=== PATIENT | female | born 1975 | race Caucasian/White ===

== ENCOUNTER 2019-07-11 10:12 | Outpatient (CLI) | payer MEDICAID, SELFPAY ==
--- NOTE | 2019-07-11 10:22 | CT_ITS ---
WS: [id number] CT LUMBAR SPINE TECHNIQUE: Noncontrast CT of the lumbar spine with coronal and sagittal reformatted images. CLINICAL INFORMATION: BACK PAIN COMPARISON: MRI February 09, 2014 DLP: 2426.[address] scans at [facility] use at least one of these dose optimization techniques: automat ed exposure control; mA and/or kV adjustment per patient size (includes targeted exams where dose is matched to clinical indication); or iterative reconstruction. FINDINGS: Normal lumbar alignment. No acute compression. No high-grade central canal stenosis. L1-L2: Normal. L2-L3: No significant disc bulging. Mild facet arthropathy. Spinal canal and foramen are patent. L3-L4: No significant disc bulging. Mild facet arthropathy. Spinal canal and foramen are patent. L4-L5: Mild annular bulging. Tiny shallow central protrusion. Mild facet arthropathy. Spinal canal an d foramen are patent. L5-S1: Mild annular bulging. Mild facet arthropathy. Spinal canal and foramen are patent. Visualized pelvic bony structures: Normal. Paravertebral soft tissues: Normal. CT/CT lumbar spine wo con* [id number] IMPRESSION: 1. Normal lumbar alignment. No acute compression. 2. No significant spinal canal or foraminal narrowing. 3. Mild facet arthropathy L3-L4 and L4-L5. 4. Minimal annular bulging L3-L4 and L4-L5. 5. Tiny shallow central protrusion L4-5 without significant spinal canal narro wing.
--- NOTE | 2019-07-11 10:23 | XR_ITS ---
WS: [id number] Lumbar spine with flexion, extension, and neutral lateral, 07/11/2019 Clinical Data: BACK PAIN Comparison: Lumbar spine x-ray, 02/09/2014 Findings: No compression fractures or subluxation is seen. No disc space narrowing is seen. No limitation of motion or subluxation is seen. There are clips in the right upper quadrant from a cholecystectomy. XR/XR lumbar spine f/e only [id number] Impression: Negative lateral lumbar spine.
== END 2019-07-11 10:13 | disposition home or self-care (01) ==
PROVIDERS: Family Provider Nurse Practitioner Family; PCP Nurse Practitioner Family; Visit Provider Anesthesiology
DX: M51.26 Other intervertebral disc displacement, lumbar region (principal)
CPT/HCPCS: 72120; 72131

== ENCOUNTER → 2019-09-13 14:49 | Outpatient (BNVA) | payer MEDICAID, SELFPAY | PROVIDERS: Family Provider Nurse Practitioner Family; PCP Internal Medicine; Visit Provider Nurse Practitioner | DX: M54.2 Cervicalgia (principal); M54.5 Low back pain; Z79.891 Long term (current) use of opiate analgesic | CPT/HCPCS: 99214 ==

== ENCOUNTER → 2020-03-14 14:08 | Outpatient (BNVA) | payer MEDICAID, SELFPAY | PROVIDERS: Family Provider Nurse Practitioner Family; PCP Internal Medicine; Visit Provider Internal Medicine | DX: R76.8 Other specified abnormal immunological findings in serum (principal); Z79.899 Other long term (current) drug therapy; Z11.59 Encounter for screening for other viral diseases; Z11.1 Encounter for screening for respiratory tuberculosis; Z88.9 Allergy status to unspecified drugs, medicaments and biological substances | CPT/HCPCS: 36415; 86480; 86704; 86803; 87340; 99203 ==

== ENCOUNTER → 2020-04-10 09:45 | Outpatient (BNVA) | payer MEDICAID, SELFPAY | PROVIDERS: Family Provider Nurse Practitioner Family; PCP Internal Medicine; Visit Provider Internal Medicine | DX: R76.8 Other specified abnormal immunological findings in serum (principal); Z88.8 Allergy status to other drugs, medicaments and biological substances; Z79.899 Other long term (current) drug therapy; G35 Multiple sclerosis | CPT/HCPCS: 99214 ==

== ENCOUNTER → 2020-09-05 09:43 | Outpatient (BNVA) | payer MEDICAID, SELFPAY | PROVIDERS: Family Provider Nurse Practitioner Family; PCP Internal Medicine; Visit Provider Internal Medicine | DX: R76.8 Other specified abnormal immunological findings in serum (principal); M25.50 Pain in unspecified joint; R21 Rash and other nonspecific skin eruption; Z79.899 Other long term (current) drug therapy; Z87.891 Personal history of nicotine dependence | CPT/HCPCS: 99213; 99214 ==

== ENCOUNTER 2020-09-05 10:40 | Outpatient (CLI) | payer MEDICAID, SELFPAY ==
[2020-09-05 11:17] LABS: Add Urine Microscopic? NO
[2020-09-05 11:22] LABS: Basophils # 0.1 10^3/uL (0.0-0.1); Basophils % 1.2 %; Eosinophils # 0.2 10^3/uL (0.0-0.8); Eosinophils % 3.1 %; Hematocrit 37.7 % (37.0-47.0); Hemoglobin 12.6 g/dL (11.5-15.3); Lymphocytes # 2.9 10^3/uL (0.8-4.8); Lymphocytes % 49.1 %; Mean Corpuscular HGB Conc 33.4 g/dL (30.0-36.0); Mean Corpuscular Hemoglobin 29.4 pg (28.0-34.0); Mean Corpuscular Volume 87.9 fL (81-99); Mean Platelet Volume 11.7 fL (7.4-10.4); Monocytes # 0.5 10^3/uL (0.2-0.9); Neutrophils # 2.25 10^3/uL (1.8-7.7); Neutrophils % 38.4 %; Nucleated Red Blood Cells # 0.1 /100WBC; Nucleated Red Blood Cells % 1.7 %; Platelet Count 211 10^3/cmm (130-400); Red Blood Count 4.29 10^6/uL (4.1-5.3); Red Cell Distribution Width 14.2 % (12.1-15.1); White Blood Count 5.9 10^3/uL (4.0-10.0)
[2020-09-05 11:24] LABS: Bilirubin Urine Neg (Negative); Blood Urine Neg (Negative); Glucose Urine UA Norm (Normal); Ketones Urine Negative (Negative); Leukocyte Esterase Urine Negative (Negative); Nitrate Urine Negative (Negative); Protein Urine Neg (Negative); Specific Gravity, Urine 1.015 (1.005-1.030); Urine Appearance Clear (CLEAR); Urine Color Yellow (Yellow); Urobilinogen Urine Norm (Negative); pH Urine 6 (5-7)
[2020-09-05 12:02] LABS: Alanine Aminotransferase 22 U/L (0-33); Albumin Level 4.2 g/dL (3.5-5.2); Alkaline Phosphatase 42 IU/L (35-105); Anion Gap 12.9 (5-19); Aspartate Amino Transferase 23 U/L (0-32); Blood Urea Nitrogen 6 mg/dL (6-20); C Reactive Protein 2.6 mg/L (0.0-4.9); Calcium 9.1 mg/dL (8.5-10.5); Carbon Dioxide 26 mmol/L (22-29); Chloride 104 mmol/L (98-107); Globulin 2.9 g/dL (1.3-4.6); Glomerular Filtration Rate 76.9 mL/min (90-130); Glucose 87 mg/dL (65-115); Osmolality Calculated 285 mOsm/kg (285-295); Potassium 3.9 mmol/L (3.5-5.1); Sodium 139 mmol/L (136-145); Total Bilirubin 0.6 mg/dL (0.15-1.2); Total Protein 7.1 g/dL (6.6-8.7)
[2020-09-05 12:03] LABS: Erythrocyte Sedimentation Rate 15 mm/hr (0-15)
== END 2020-09-05 10:41 | disposition home or self-care (01) ==
PROVIDERS: PCP Internal Medicine; Visit Provider Internal Medicine
DX: R76.8 Other specified abnormal immunological findings in serum (principal)
CPT/HCPCS: 36415; 80053; 81003; 85025; 85651; 86140

== ENCOUNTER 2021-01-06 12:45 | Outpatient (CLI) | payer MEDICAID, SELFPAY ==
[2021-01-06 13:27] LABS: Alanine Aminotransferase 11 U/L (0-33); Alkaline Phosphatase 43 IU/L (35-105); Anion Gap 14.3 (5-19); Aspartate Amino Transferase 20 U/L (0-32); Blood Urea Nitrogen 7 mg/dL (6-20); C Reactive Protein 4.8 mg/L (0.0-4.9); Calcium 8.9 mg/dL (8.5-10.5); Carbon Dioxide 26 mmol/L (22-29); Chloride 104 mmol/L (98-107); Globulin 2.5 g/dL (1.3-4.6); Glomerular Filtration Rate 76.9 mL/min (90-130); Glucose 90 mg/dL (65-115); Osmolality Calculated 288 mOsm/kg (285-295); Potassium 4.3 mmol/L (3.5-5.1); Sodium 140 mmol/L (136-145); Total Bilirubin 0.5 mg/dL (0.15-1.2); Total Protein 6.5 g/dL (6.6-8.7)
[2021-01-06 13:28] LABS: Basophils # 0.1 10^3/uL (0.0-0.1); Basophils % 0.8 %; Eosinophils # 0.2 10^3/uL (0.0-0.8); Eosinophils % 2.5 %; Hematocrit 39.6 % (37.0-47.0); Hemoglobin 13.3 g/dL (11.5-15.3); Lymphocytes # 2.5 10^3/uL (0.8-4.8); Lymphocytes % 41.1 %; Mean Corpuscular HGB Conc 33.6 g/dL (30.0-36.0); Mean Corpuscular Hemoglobin 29.6 pg (28.0-34.0); Mean Corpuscular Volume 88.2 fL (81-99); Mean Platelet Volume 11.9 fL (7.4-10.4); Monocytes # 0.4 10^3/uL (0.2-0.9); Monocytes % 6.8 %; Neutrophils % 48.5 %; Nucleated Red Blood Cells # 0.1 /100WBC; Nucleated Red Blood Cells % 1.5 %; Platelet Count 193 10^3/cmm (130-400); Red Blood Count 4.49 10^6/uL (4.1-5.3); Red Cell Distribution Width 13.2 % (12.1-15.1)
[2021-01-06 14:22] LABS: Erythrocyte Sedimentation Rate 13 mm/hr (0-15)
== END 2021-01-06 12:46 | disposition home or self-care (01) ==
PROVIDERS: PCP Internal Medicine; Visit Provider Internal Medicine
DX: R76.8 Other specified abnormal immunological findings in serum (principal); Z79.891 Long term (current) use of opiate analgesic; Z79.899 Other long term (current) drug therapy
CPT/HCPCS: 36415; 80053; 85025; 85651; 86140

== ENCOUNTER → 2021-01-08 10:48 | Outpatient (BNVA) | payer MEDICAID, SELFPAY | PROVIDERS: PCP Internal Medicine; Visit Provider Internal Medicine | DX: R76.8 Other specified abnormal immunological findings in serum (principal); R21 Rash and other nonspecific skin eruption; Z79.891 Long term (current) use of opiate analgesic; Z79.899 Other long term (current) drug therapy; Z87.891 Personal history of nicotine dependence | CPT/HCPCS: 99214 ==

== ENCOUNTER 2021-04-07 08:50 | Outpatient (CLI) | payer MEDICAID, SELFPAY ==
--- NOTE | 2021-04-07 08:57 | XR_ITS ---
WS: [id number] Bone mineral density performed on a TM, 04/07/2021. Clinical data: check bone density change COMPARISON STUDY: None. Findings: The first 4 lumbar vertebral bodies demonstrated the bone mineral density of 1.040 g/cm2 for a young adult T score of -1.2. Measurement of the left hip reveals a bone mineral density of 0.777 g/cm2 with a young adult T score of -1.8. Measurement of the right hip reveals the bone mineral density of 0.814 g/cm2 for young adult T score of -1.5. XR/XR DEXA axial skeleton* [id number] Impression: Bone mineral density of the lumbar spine and both hips shows osteopenia.
== END 2021-04-07 08:51 | disposition home or self-care (01) ==
PROVIDERS: PCP Internal Medicine; Visit Provider Internal Medicine
DX: M81.0 Age-related osteoporosis without current pathological fracture (principal); R76.8 Other specified abnormal immunological findings in serum; M85.89 Other specified disorders of bone density and structure, multiple sites
CPT/HCPCS: 77080

== ENCOUNTER 2021-05-15 11:17 | Outpatient (CLI) | payer MEDICAID, SELFPAY ==
[2021-05-15 12:26] LABS: Calcium 9.2 mg/dL (8.5-10.5)
[2021-05-15 12:33] LABS: Parathyroid Hormone 34.8 pg/mL (15-65)
[2021-05-15 12:46] LABS: 25 Hydroxy Vitamin D 50 ng/mL (30-100); Alanine Aminotransferase 15 U/L (0-33); Albumin Level 4.4 g/dL (3.5-5.2); Alkaline Phosphatase 40 IU/L (35-105); Anion Gap 14.9 (5-19); Aspartate Amino Transferase 21 U/L (0-32); Blood Urea Nitrogen 9 mg/dL (6-20); Calcium 8.9 mg/dL (8.5-10.5); Carbon Dioxide 25 mmol/L (22-29); Chloride 105 mmol/L (98-107); Globulin 2.5 g/dL (1.3-4.6); Glomerular Filtration Rate 76.9 mL/min (90-130); Glucose 77 mg/dL (65-115); Osmolality Calculated 289 mOsm/kg (285-295); Potassium 3.9 mmol/L (3.5-5.1); Sodium 141 mmol/L (136-145); Thyroid Stimulating Hormone 1.54 uIU/mL (0.27-4.20); Total Bilirubin 0.4 mg/dL (0.15-1.2); Total Protein 6.9 g/dL (6.6-8.7)
[2021-05-15 13:14] LABS: Free T4 Free Thyroxine 1.22 ng/dL (0.82-1.77)
== END 2021-05-15 11:18 | disposition home or self-care (01) ==
LOC: LAB 11:22
PROVIDERS: PCP Internal Medicine; Visit Provider Internal Medicine
DX: M81.0 Age-related osteoporosis without current pathological fracture (principal)
CPT/HCPCS: 36415; 80053; 82306; 82310; 83970; 84439; 84443

== ENCOUNTER 2021-05-15 11:23 | Outpatient (CLI) | payer MEDICAID, SELFPAY ==
--- NOTE | 2021-05-15 11:28 | XR_ITS ---
WS: [id number] Right hand, AP and lateral views, 05/15/2021 Clinical Data: R76.8 - Other specified abnormal immunological findings i... Comparison: Right hand, 02/26/2020. Findings: No fractures or dislocations are seen. The soft tissues are unremarkable. The joint space s are normal No periarticular demineralization or calcifications are seen. XR/XR hand RT 2V [id number] Impression: Negative right hand.
--- NOTE | 2021-05-15 11:28 | XR_ITS ---
WS: [id number] Left hand, 2 views, 05/15/2021 Clinical Data: R76.8 - Other specified abnormal immunological findings i... Comparison: Left hand, 02/26/2020 Findings: No fractures or dislocations are seen. The soft tissues are unremarkable. The joint spaces are normal No periarticular demineralization or calcifications are seen. XR/XR hand LT 2V [id number] Impression: Negative left hand.
== END 2021-05-15 11:24 | disposition home or self-care (01) ==
LOC: RAD 11:25
PROVIDERS: PCP Internal Medicine; Visit Provider Internal Medicine
DX: R76.8 Other specified abnormal immunological findings in serum (principal)
CPT/HCPCS: 73120

== ENCOUNTER → 2021-05-22 10:31 | Outpatient (BNVA) | payer MEDICAID, SELFPAY | PROVIDERS: PCP Internal Medicine; Visit Provider Internal Medicine | DX: M81.0 Age-related osteoporosis without current pathological fracture (principal); T14.8XXA Other injury of unspecified body region, initial encounter; M06.9 Rheumatoid arthritis, unspecified; G35 Multiple sclerosis; X58.XXXA Exposure to other specified factors, initial encounter | CPT/HCPCS: 99214 ==

== ENCOUNTER → 2021-06-19 08:30 | Outpatient (BNVA) | payer MEDICAID, SELFPAY | PROVIDERS: PCP Internal Medicine; Referring Provider Nurse Practitioner; Visit Provider Orthopaedic Surgery | DX: M05.9 Rheumatoid arthritis with rheumatoid factor, unspecified (principal); G35 Multiple sclerosis; M81.0 Age-related osteoporosis without current pathological fracture; M54.2 Cervicalgia | CPT/HCPCS: 72050; 99214 ==

== ENCOUNTER 2021-07-30 12:41 | Outpatient (CLI) | payer MEDICAID, SELFPAY ==
--- NOTE | 2021-07-30 12:48 | MR_ITS ---
WS: [id number] MRI CERVICAL SPINE NONCONTRAST TECHNIQUE: Sagittal T1, T2 and STIR imaging. Axial T2, gradient, and fiesta imaging. CLINICAL INFORMATION: M54.2 - Cervicalgia COMPARISON: MRI 5 , [address] CT FINDINGS: Straightening of the normal cervical lordosis. Anterior interbody cervical fusion C4-C6. Cord signal is normal. No high-grade central canal narrowing. Postoperative changes are new since the MRI in 2015. Hardware appears stable since the prior CT in . Susceptibility artifact from hardware degrades some images. C2-C3: Normal. C3-C4: No significant disc bulging. Mild facet arthropathy. Spinal canal and foramen are patent. C4-C5: Prior postoperative changes anterior interbody cervical fusion. Susceptibility artifact degrad es some images at this level. Mild bilateral foraminal narrowing. Mild facet arthropathy. Spinal angela l is patent. C5-C6: Postoperative changes ACDF. Moderate left bony foraminal narrowing with encroachment on the ex iting left C6 nerve root. Mild right bony foraminal narrowing. Spinal canal is patent. Moderate facet arthropathy. C6-C7: Postoperative changes ACDF. Mild left and no significant right foraminal narrowing. Spinal can al is patent. Mild facet arthropathy. C7-T1: Normal. Mucosal thickening partially visualized in the sphenoid sinus. MR/MR cervical spin wo con* [id number] IMPRESSION: 1. Straightening of the normal cervical lordosis with prior ACDF C4-C6. 2. No high-grade central canal stenosis. Cord signal is normal. 3. Moderate left C5-C6 bony foraminal narrowing with encroachment on the exiti ng left C6 nerve root. Recommend correlation for left C6 nerve root symptoms. 4. Mild to moderate facet arthropathy worse at C4-C5 and C5-C6.
== END 2021-07-30 12:42 | disposition home or self-care (01) ==
LOC: RAD 12:44
PROVIDERS: PCP Internal Medicine; Visit Provider Orthopaedic Surgery
DX: Z98.1 Arthrodesis status (principal); M47.812 Spondylosis without myelopathy or radiculopathy, cervical region
CPT/HCPCS: 72141

== ENCOUNTER → 2021-08-21 09:58 | Outpatient (BNVA) | payer MEDICAID, SELFPAY | PROVIDERS: PCP Internal Medicine; Referring Provider Orthopaedic Surgery; Visit Provider Anesthesiology Pain Medicine | DX: G89.29 Other chronic pain (principal); M47.22 Other spondylosis with radiculopathy, cervical region; M47.812 Spondylosis without myelopathy or radiculopathy, cervical region; M79.601 Pain in right arm; M79.602 Pain in left arm | CPT/HCPCS: 99205 ==

== ENCOUNTER → 2021-09-08 12:52 | Outpatient (BNVA) | payer MEDICAID, SELFPAY | PROVIDERS: PCP Internal Medicine; Visit Provider Anesthesiology Pain Medicine | DX: M54.12 Radiculopathy, cervical region (principal) | CPT/HCPCS: 62321; J1100; J1200 ==

== ENCOUNTER 2021-09-23 11:46 | Outpatient (CLI) | payer MEDICAID, SELFPAY | END 2021-09-23 11:47 | disposition home or self-care (01) | LOC: SPT 11:47 | PROVIDERS: PCP Internal Medicine; Visit Provider Orthopaedic Surgery | DX: Z46.89 Encounter for fitting and adjustment of other specified devices (principal); M54.2 Cervicalgia | CPT/HCPCS: 97760; L0174 ==

== ENCOUNTER → 2021-09-30 13:21 | Outpatient (BNVA) | payer MEDICAID, SELFPAY | PROVIDERS: PCP Internal Medicine; Visit Provider Orthopaedic Surgery | DX: Z20.822 Contact with and (suspected) exposure to COVID-19 (principal); M47.22 Other spondylosis with radiculopathy, cervical region; G35 Multiple sclerosis | CPT/HCPCS: 87635 ==

== ENCOUNTER 2021-10-06 08:09 | Day surgery (SDC) | payer MEDICAID, SELFPAY ==
[2021-10-02 13:48] VITALS: BMI 29.9
--- NOTE | 2021-10-02 15:10 | P.ANESASSM_ITS ---
Pre-Anesthetic Assessment Height/Weight: Height 1.53 m Weight 70.307 kg Operation Date: 10/06/21 14:00 Proposed Procedures p Cervical Foraminotomy C5/6, C6/7 79605/09516(Left) - Cj Skinner DO Familial anesthetic complications: None Was Beta Solange taken within 24 hours: N/A Was Clonidine taken within 24 hours: N/A Social No alcohol and No tobacco Exam alert, oriented x 3, clear to auscultation bilaterally and regular rate & rhythm Airway Submandibular: within normal limits Cervical ROM: Other (Some limitation with pain) Mallampati: Class II Dentition: false Metabolic Hyperlipidemia, Morbid Obesity and Thyroid Disease [facility] [place] Osteoarthritis/DJD LUE pain Neuropsych MS Anesthetic Plan ASA status: 3 Anesthesia: General Other: Significant PONV --TIVA? Medications/Allergies Home Medications Medication Instructions Recorded Confirmed Last Taken Type albuterol sulfate 90 mcg/actuation 2 puff INHALATION Q6H PRN 09/13/19 10/02/21 Unknown History aerosol inhaler (ProAir HFA) lidocaine 4 % topical cream 1 applic TOPICAL .every 6 hours gm 09/13/19 10/02/21 Unknown History loratadine 10 mg tablet 10 mg PO DAILY 09/13/19 10/02/21 Unknown History melatonin 5 mg tablet 5 mg PO DAILY PRN 09/13/19 10/02/21 Unknown History multivit with [id number] tab PO 09/13/19 09/23/21 Unknown History fumarate-folic acid 27 mg-1 mg tablet oxybutynin chloride 5 mg tablet 5 mg PO BID 09/13/19 10/02/21 Unknown History pregabalin 150 mg capsule (Lyrica) 150 mg PO TID #90 cap 09/13/19 10/02/21 Unknown Rx simvastatin 20 mg tablet 20 mg PO DAILY 09/13/19 10/02/21 Unknown History tizanidine 4 mg tablet (Zanaflex) 4 mg PO Q8H PRN 09/13/19 10/02/21 Unknown History vitamin d See Rx Instructions DIRECTED 01/29/20 10/02/21 Unknown Rx .weekly #30 cap levothyroxine 50 mcg capsule 50 mcg PO DAILY 03/14/20 10/02/21 Unknown History diclofenac sodium 1 % topical gel 2 gm TOPICAL QID #100 gm 04/10/20 10/02/21 Unknown Rx (Voltaren) meloxicam 15 mg tablet 15 mg PO DAILY #30 tab 08/29/20 10/02/21 Unknown Rx natalizumab 300 mg/15 mL 300 mg IV Q28D 01/08/21 10/02/21 Unknown History intravenous solution (Tysabri) alendronate 70 mg tablet (Fosamax) 70 mg PO .weekly 90 Days #12 tab 09/16/21 10/02/21 Unknown Rx anvik j collar #1 ea 09/23/21 09/23/21 Unknown Rx Allergies Allergy/AdvReac Type Severity Reaction Status Date / Time carisoprodol [From Soma] Allergy ALGY-Rash Verified 09/23/21 10:51 prednisolone Allergy ALGY-Anaphy Verified 09/23/21 10:51 laxis prednisone Allergy ALGY-Difficulty Verified 09/23/21 10:51 Breathing zolmitriptan [From Zomig] Allergy RASH Verified 09/23/21 10:51 adhesive AdvReac UNKNOWN Verified 09/23/21 10:51 carbamazepine [From Tegretol] AdvReac VOMITING Verified 09/23/21 10:51 zolpidem [From Ambien] AdvReac SLEEP Verified 09/23/21 10:51 WALKING [facility] Anesthesia Medical History (Updated 09/23/21 @ 11:11 by Cj Skinner DO) Drug allergy Encounter for long-term opiate analgesic use Low back pain of over 3 months duration Neck pain Opioid contract exists Rheumatoid factor positive Surgical History Hx of cholecystectomy Hx of hysterectomy, total Hx of neck surgery 03/26/16 w/Dr Schmidt C4-C5 C5-C6 anterior cervical discectomy/ fusion/ fixation Hx of repair of rotator cuff Left-2009 Family History Mother Hypertension Grandfather Cancer liver Social History Smoking and tobacco status: never smoked Alcohol intake: never History of recent travel: No Data Anesthesia Cardiac Studies: No Data to Display
[2021-10-06] VITALS (14 sets, daily range): BP systolic 117–138; BP diastolic 73–85; PULSE 61–92; RESP 10–20; TEMP 36–36.6; O2SAT 94–100
--- NOTE | 2021-10-06 | SCC_ITS ---
Procedure done: 1. C5/6 laminectomy, partail facetectomy, foraminotomy 2. C6/7 laminectomy, partail facetectomy, foraminotomy 12.2 seconds of fluoroscopic guidance, for a cumulative dose of 0.67 mGy, was provided to Dr. Skinner by the radiology department. C-arm images of the cervical spine were saved for the patient's permanent record. [facility]
--- NOTE | 2021-10-06 | XR_ITS ---
WS: [id number] INTRAOPERATIVE TECHNIQUE: 4 Spot fluoroscopic images for intraoperative purposes. FLUOROSCOPY TIME: 12.2 seconds CLINICAL INFORMATION: IN OR COMPARISON: None. FINDINGS: Endotracheal tube partially visualized. Prior postoperative changes anterior cervical fusion C4-C6 wi th interbody fusion grafts. Localization marker overlying C5 and C6 XR/XR cervical spine 3V* [id number] IMPRESSION: Images obtained for intraoperative purposes.
[2021-10-06] MEDS: sodium chloride 0.9% 1,000 ML 30 ML IV (08:32)
--- NOTE | 2021-10-06 08:43 | P.ANESUD_ITS ---
Pre-Anesthetic Update Pre-Anesthetic Assessment: Date of Surgery/Procedure: 10/06/21 Preop Shweta gnosis: Cervical radiculopathy Proposed Procedure: Operation Date: 10/06/21 09:50 Proposed Procedures p Cervical Foraminotomy C5/6, C6/7 12051/69118(Left) - Cj Skinner, DO Any changes to Pre-Anesthetic Assessment?: No Last Intake: Intake Last Liquid Date 10/05/21 Last Liquid Time 23:00 Last Solid Date 10/05/21 Last Solid Time 23:00 Labs Last 48hrs: ? 8 hrs Vitals: Temperature 98 F 10/06/21 08:25 Temperature Source Temporal Artery S can 10/06/21 08:25 Pulse Rate 73 10/06/21 08:25 Pulse Rhythm 10/06/21 08:20 Pulse Strength 3+ Normal 10/06/21 08:20 Respiratory Rate 16 10/06/21 08:25 Blood Pressure 125/85 10/06/21 08:25 Blood Pressure Dary n 98 10/06/21 08:25 Pulse Oximetry 97 10/06/21 08:25 Oxygen Delivery Me thod 10/06/21 08:25 Exam: Pre-Anes Outpt Exam: alert, oriented x 3, clear to auscultation bilaterally and regular rate & rhythm Other Pertinent Information: Other Pertinent Information: pre-op scopolamine patch Cardiac Studies: No Data to Display
[2021-10-06] MEDS: scopolamine 1.5 Patch 1 PATCH TRANSDERMA (08:48)
--- NOTE | 2021-10-06 09:20 | W.PM.OPSUD ---
Surgery/Procedure H&P Update DATE OF PROCEDURE: October 06, 2021 DATE H&P PERFORMED: 09/23/21 H&P UPDATE INFORMATION: I have reviewed H&P completed within last 30 days, I have examined patient prior to procedure and No changes to prior documentation PREOP DIAGNOSIS: Cervical radiculopathy PLANNED PROCEDURE: Operation Date: 10/06/21 09:50 Proposed Procedures p Cervical Foraminotomy C5/6, C6/7 39895/[id number](Left) - Cj Skinner DO
--- NOTE | 2021-10-06 11:23 | P.OP_ITS ---
Operative Report Date of procedure: October 06, 2021 Pre-op diagnosis: Preop Diagnosis Cervical radiculopathy Post-op diagnosis: same Procedure done: 1. C5/6 laminectomy, partail facetectomy, foraminotomy 2. C6/7 laminectomy, partail facetectomy, foraminotomy Surgeon: Cj Skinner Component Assembler Supervisor: James Serna Component Assembler Supervisor: The visitor service assistant, James Serna, PAC was needed for his expertise under the microscope. He was important and necessary throughout the procedure to complete in a safe and timely manner. He assisted with patient positioning prepping and draping tissue retraction suctioning of the operative field protection of the dural sac and tissue closure Estimated blood loss (mL): 25 Procedure: 1. C5/6 laminectomy, partail facetectomy, foraminotomy 2. C6/7 laminectomy, partail facetectomy, foraminotomy Patient is brought to the operative suite. After undergoing anesthesia they are placed in the prone position. All areas of impingement are well padded. Patient is then prepped and draped in the normal sterile fashion. A skin incision is made over the C5/6 and C6/7 level. This is confirmed under c-arm guidance. A bovie is used to clear the soft tissue off the lamina and the C5/6 facet joint. A high speed whit is then used to perform the laminectomy and take down the medial aspect of the C5/6 facet joint. A kerrison rongeure was then used to take down the remaining lamina and smooth the edge of the laminectomy up to the point where the ligamentum flavum attaches. Attention was then brought to the medial aspect of the facet joint. The remaining medial aspect of the superior and inferior aspect of the facet joint were taken down with the kerrison from the pedicle of C5 to C6. The facet joint had significant hypertrophy. Attention was then brought to the Ligamentum Flavum. The ligament was taken down from the lamina of C5 to C6 and out medially to the remaining facet joint. The ligament was thick. The dura was then exposed. The dura was in good repair. The C6 nerve was then traced with a curette out the C5/6 foramen and found to be adequately decompressed. The C7 nerve was traced with a curette around the C7 pedicle. The lateral recess was opened with a kerrison helping to further decompress the C7 nerve. A bovie is used to clear the soft tissue off the lamina and the C6/7 facet joint. A high speed whit is then used to perform the laminectomy and take down the medial aspect of the C6/7 facet joint. A kerrison rongeure was then used to take down the remaining lamina and smooth the edge of the laminectomy up to the point where the ligamentum flavum attaches. Attention was then brought to the medial aspect of the facet joint. The remaining medial aspect of the superior and inferior aspect of the facet joint were taken down with the kerrison from the pedicle of C6 to C7. The facet joint had significant hypertrophy. Attention was then brought to the Ligamentum Flavum. The ligament was taken down from the lamina of C6 to C7 and out medially to the remaining facet joint. The ligament was thick. The dura was then exposed. The dura was in good repair. The C7 nerve was then traced with a curette out the C6/7 foramen and found to be adequately decompressed. The C8 nerve was traced with a curette around the C7 pedicle. The lateral recess was opened with a kerrison helping to further decompress the C8 nerve. Wound is then irrigated copiously with saline and surgiflo is used to stop any bleeding. The wound is closed with vicryl and monocryl suture. Glue is then used to protect the wound. A sterile dressing is then placed. Patient was then placed in the supine position and transferred to the PACU in stable condition.
--- NOTE | 2021-10-06 11:42 | SUR.PHASEI ---
Addendum entered by Chris Kaur RN 10/06/21 11:56: NSR ON MONITOR Original Note: RECEIVED PATIENT FROM OR STAFF.AIRWAY PATENT GOOD VENTILATION NOTED. ROM AND SENSATION ALL 4 EXTREMITIES.
[2021-10-06] MEDS: ondansetron 2 mg/ML SDV 2 mL 4 MG IVP (11:53)
--- NOTE | 2021-10-06 11:54 | SUR.PHASEI ---
MEDICATED FOR NAUSEA.
[2021-10-06] MEDS: fentaNYL 50 mcg/mL INJ 2mL IVP (12:08)
--- NOTE | 2021-10-06 12:10 | SUR.PHASEI ---
MEDICATED FOR NECK PAIN.
[2021-10-06] MEDS: HYDROcodone-acetaminophen 5-325 mg Tablet 2 TAB PO (13:24)
--- NOTE | 2021-10-06 16:02 | ANE.PACU2 ---
Inpatient post-anesthesia follow up: Airway intact: Yes Vital signs: Temperature 96.8 F Pulse Rate 68 Respiratory Rate 15 Blood Pressure 130/83 Pulse Oximetry 94 Oxygen Delivery Me thod Room Air Oxygen Flow Rate 6 Fraction of Inspir ed Oxygen Hydration adequate: Yes Nausea and vomiting: No Pain level: 3 Mental status: Baseline
== END 2021-10-06 13:30 | disposition home or self-care (01) ==
PROVIDERS: PCP Internal Medicine; Visit Provider Orthopaedic Surgery
PROC: (CPT 22600; principal; 2021-10-06 09:50)
DX: M54.12 Radiculopathy, cervical region (principal); E78.5 Hyperlipidemia, unspecified; E66.01 Morbid (severe) obesity due to excess calories; M19.90 Unspecified osteoarthritis, unspecified site; Z79.891 Long term (current) use of opiate analgesic; Z68.30 Body mass index [BMI] 30.0-30.9, adult
CPT/HCPCS: 63047; 63048; 72040; 76000; J0690; J1100; J1200; J2405; J2704; J2710; J3010; J3490; J7030

== ENCOUNTER → 2021-10-21 08:39 | Outpatient (BNVA) | payer MEDICAID, SELFPAY | PROVIDERS: PCP Internal Medicine; Visit Provider Orthopaedic Surgery | DX: Z47.89 Encounter for other orthopedic aftercare (principal); Z98.890 Other specified postprocedural states | CPT/HCPCS: 99024 ==

== ENCOUNTER → 2021-11-03 08:37 | Outpatient (BNVA) | payer MEDICAID, SELFPAY | PROVIDERS: PCP Internal Medicine; Visit Provider Internal Medicine | DX: M81.0 Age-related osteoporosis without current pathological fracture (principal); R76.8 Other specified abnormal immunological findings in serum; T14.8XXA Other injury of unspecified body region, initial encounter; X58.XXXA Exposure to other specified factors, initial encounter; M05.9 Rheumatoid arthritis with rheumatoid factor, unspecified; G35 Multiple sclerosis | CPT/HCPCS: 99214 ==

== ENCOUNTER → 2021-11-18 10:02 | Outpatient (BNVA) | payer MEDICAID, SELFPAY | PROVIDERS: PCP Internal Medicine; Visit Provider Orthopaedic Surgery | DX: Z47.89 Encounter for other orthopedic aftercare (principal); Z98.890 Other specified postprocedural states | CPT/HCPCS: 99024 ==

== ENCOUNTER → 2021-12-30 09:43 | Outpatient (BNVA) | payer MEDICAID, SELFPAY | PROVIDERS: PCP Internal Medicine; Visit Provider Orthopaedic Surgery | DX: Z47.89 Encounter for other orthopedic aftercare (principal); M54.50 Low back pain, unspecified | CPT/HCPCS: 99024; 99213 ==

== ENCOUNTER 2022-02-04 12:51 | Outpatient (CLI) | payer MEDICAID, SELFPAY ==
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
== END 2022-02-04 12:52 | disposition home or self-care (01) ==
PROVIDERS: PCP Internal Medicine; Visit Provider Orthopaedic Surgery
DX: M51.26 Other intervertebral disc displacement, lumbar region (principal); M51.27 Other intervertebral disc displacement, lumbosacral region; M47.816 Spondylosis without myelopathy or radiculopathy, lumbar region
CPT/HCPCS: 72148

== ENCOUNTER → 2022-02-10 10:51 | Outpatient (BNVA) | payer MEDICAID, SELFPAY | PROVIDERS: PCP Internal Medicine; Visit Provider Orthopaedic Surgery | DX: M47.816 Spondylosis without myelopathy or radiculopathy, lumbar region (principal) | CPT/HCPCS: 99213; 99214 ==

== ENCOUNTER → 2022-03-02 10:58 | Outpatient (BNVA) | payer MEDICAID, SELFPAY | PROVIDERS: PCP Internal Medicine; Visit Provider Anesthesiology Pain Medicine | DX: G89.29 Other chronic pain (principal); M54.50 Low back pain, unspecified; M79.604 Pain in right leg; M79.605 Pain in left leg | CPT/HCPCS: 99214 ==

== ENCOUNTER 2022-03-05 06:00 | Outpatient (RCR) | payer MEDICAID, SELFPAY | END 2022-04-03 23:59 | disposition home or self-care (01) | LOC: GPT 06:00 | PROVIDERS: PCP Internal Medicine; Visit Provider Anesthesiology Pain Medicine | DX: M54.50 Low back pain, unspecified (principal); G89.29 Other chronic pain | CPT/HCPCS: 97110; 97140; 97161 ==

== ENCOUNTER 2022-09-24 11:01 | Outpatient (CLI) | payer MEDICAID, SELFPAY ==
--- NOTE | 2022-09-24 11:36 | FL_ITS ---
WS: [id number] EXAMINATION: FL barium swallow [id number] REASON FOR EXAM: HOARSENESS/MULTIPLE SCLEROSIS ORDER DATE: 09/24/2022 11:38 AM COMPARISON: None available. TECHNIQUE: The patient was able to swallow thick and thin barium along with effervescent granules for the esopha gram. Cine-fluoroscopy with rapid sequence imaging was obtained while the patient swallowed. The pete ent was also placed supine and in various recumbent positions during the exam. FINDINGS: There was a normal mucosal fold pattern in the upper esophagus. There is no sign of diverticula, webs or stricture. There was no delay in contrast emptying from the esophagus into the stomach. Normal es ophageal motility without sliding hiatal hernia. With provocative maneuvers no gastroesophageal reflu x was initiated. The distal esophageal mucosal pattern is unremarkable. FL/FL barium swallow [id number] IMPRESSION: Normal esophagram FLUOROSCOPY TIME: 1min [id number] # OF SPOT FILMS: 4
== END 2022-09-24 11:02 | disposition home or self-care (01) ==
LOC: RAD 11:04
PROVIDERS: PCP Internal Medicine; Visit Provider Nurse Practitioner
DX: G35 Multiple sclerosis (principal); R49.0 Dysphonia
CPT/HCPCS: 74220

== ENCOUNTER 2022-11-27 08:56 | Outpatient (CLI) | payer MEDICAID, SELFPAY ==
--- NOTE | 2022-11-27 09:08 | FL_ITS ---
WS: [id number] Modified barium swallow, 11/27/2022 Clinical Data: Oropharyngeal dysphagia Comparison: None. Fluoroscopy time: 1min [id number] # of spot films: Findings: The patient ingested the barium products. There was normal oral movement. The oral contents were prop elled normally into the hypopharynx. No aspiration or penetration could be seen. There is no signific ant pooling. The barium proceeded normally through the hypopharynx. The barium tablet flowed quickly from the oropharynx into the hypopharynx then the esophagus and finally the stomach. FL/FL barium swallow modifd [id number] Impression: Negative modified barium swallow.
== END 2022-11-27 08:57 | disposition home or self-care (01) ==
PROVIDERS: PCP Internal Medicine; Visit Provider Otolaryngology
DX: J37.0 Chronic laryngitis (principal); R13.12 Dysphagia, oropharyngeal phase
CPT/HCPCS: 74230; 92611

== ENCOUNTER 2023-01-11 16:00 | Outpatient (CLI) | payer MEDICAID, SELFPAY ==
--- NOTE | 2023-01-11 16:15 | CT_ITS ---
WS: [id number] CT NECK TECHNIQUE: Contrast-enhanced CT of the neck with coronal and sagittal reformatted images. CLINICAL INFORMATION: DYSPHAGIA, PHARYNGOESOPHAGEAL PHASE COMPARISON: None. DLP: 192.[address] scans at [facility] use at least one of these dose optimization techniques: automated e xposure control; mA and/or kV adjustment per patient size (includes targeted exams where dose is matc hed to clinical indication); or iterative reconstruction. FINDINGS: Paranasal sinuses and mastoid air cells well aerated. Small amount of fluid in the sphenoid sinus. Mild mucosal thickening ethmoid air cells. Parotid glands are normal. Normal submandibular glands. Tongue base is normal. Normal posterior nasal nasopharynx and parapharyngeal fat. No evidence of supraglottic or glottic mass. Azygos fissure in t he RIGHT lung apex. No cervical lymphadenopathy. Postoperative changes ACDF C4-C6. CT/CT neck w con* [id number] IMPRESSION: 1. No acute findings. 2. Normal salivary glands. 3. No cervical lymphadenopathy. 4. No evidence of supraglottic or glottic mass. 5. Small amount of fluid in the sphenoid sinus. Mastoid air cells well aerated . 6. Postoperative changes ACDF C4-C6.
[2023-01-11] MEDS: iohexol 350 mg/mL 500 mL Btl (per mL) IV (16:28)
== END 2023-01-11 16:01 | disposition home or self-care (01) ==
LOC: RAD 16:02
PROVIDERS: PCP Internal Medicine; Visit Provider Otolaryngology
DX: R13.14 Dysphagia, pharyngoesophageal phase (principal); Z98.1 Arthrodesis status
CPT/HCPCS: 70491; Q9967

== ENCOUNTER → 2023-09-16 11:37 | Outpatient (BNVA) | payer MEDICAID, SELFPAY | PROVIDERS: PCP Internal Medicine; Referring Provider Physician Assistant; Visit Provider Internal Medicine Pulmonary Disease | DX: R76.8 Other specified abnormal immunological findings in serum (principal); R06.02 Shortness of breath | CPT/HCPCS: 36415; 82785; 85025; 86003; 99204 ==

== ENCOUNTER 2023-09-28 09:25 | Outpatient (CLI) | payer MEDICAID, SELFPAY ==
--- NOTE | 2023-09-28 10:00 | CTR_ITS ---
PROCEDURE INFORMATION: Exam: CT Chest Without Contrast; Diagnostic Exam date and time: 09/28/2023 9:31 AM Age: 48 years old Clinical indication: Shortness of breath; Patient HX: HX of cervical cancer; Additional info: Hrct TECHNIQUE: Imaging protocol: Diagnostic computed tomography of the chest without contrast. Radiation optimization: All CT scans at this facility use at least one of these dose optimization techniques: automated exposure control; mA and/or kV adjustment per patient size (includes targeted exams where dose is matched to clinical indication); or iterative reconstruction. COMPARISON: CT neck w con* [id number] 01/11/2023 4:23 PM RADIATION DOSE METRICS: Total DLP (mGy-cm): 1177.5 FINDINGS: Lungs: Tree in bud/mildly confluent infiltrate lower lobe. Pleural spaces: Unremarkable. No pneumothorax. No pleural effusion. Heart: Unremarkable. No cardiomegaly. No pericardial effusion. Lymph nodes: Visible central lymph nodes are not enlarged. Vasculature: Azygos accessory fissure. No coronary artery calcifications. Gallbladder and bile ducts: Cholecystectomy. Bones/joints: Unremarkable. No acute fracture. Soft tissues: Unremarkable. CT/CT chest wo con [id number] IMPRESSION: Mild left lower pneumonia.
== END 2023-09-28 09:26 | disposition home or self-care (01) ==
LOC: RAD 09:26
PROVIDERS: PCP Internal Medicine; Visit Provider Internal Medicine Pulmonary Disease
DX: J84.9 Interstitial pulmonary disease, unspecified (principal); J18.9 Pneumonia, unspecified organism
CPT/HCPCS: 71250

== ENCOUNTER 2023-10-06 09:37 | Outpatient (CLI) | payer MEDICAID, SELFPAY | END 2023-10-06 09:38 | disposition home or self-care (01) | PROVIDERS: PCP Internal Medicine; Visit Provider Internal Medicine Pulmonary Disease | DX: R06.02 Shortness of breath (principal) | CPT/HCPCS: 94010; 94618; 94726; 94729 ==

== ENCOUNTER → 2023-11-16 14:34 | Outpatient (BNVA) | payer MEDICAID, SELFPAY | PROVIDERS: PCP Internal Medicine; Visit Provider Internal Medicine Pulmonary Disease | DX: R06.02 Shortness of breath (principal) | CPT/HCPCS: 99214 ==

== ENCOUNTER → 2024-04-04 12:30 | Outpatient (BNVA) | payer MEDICAID, SELFPAY | PROVIDERS: PCP Internal Medicine; Referring Provider Nurse Practitioner; Visit Provider Nurse Practitioner Family | DX: L57.0 Actinic keratosis (principal); L71.8 Other rosacea; L85.8 Other specified epidermal thickening; L82.1 Other seborrheic keratosis; D22.5 Melanocytic nevi of trunk; L57.8 Other skin changes due to chronic exposure to nonionizing radiation; Z80.8 Family history of malignant neoplasm of other organs or systems | CPT/HCPCS: 17000; 99214 ==

== ENCOUNTER 2024-07-19 08:38 | Outpatient (CLI) | payer MEDICAID, SELFPAY ==
--- NOTE | 2024-07-19 08:47 | MR_ITS ---
WS: [id number] MRI BRAIN WITH AND WITHOUT CONTRAST HISTORY: HEADACHE COMPARISON: 12/11/2015 TECHNIQUE: Multiplanar imaging performed through the brain with MultiHance 13 ml's IV. No acute infarcts are seen. Potter-white matter differentiation is well preserved. Moderate increase in the scattered T2 and FLAIR signal hyperintensities in the subcortical and periventricular white jeanie er since 2016. Numerous scattered foci are noted bilaterally. No signal abnormality in the cerebellum . No susceptibility artifacts or prior lacunar infarcts. Ventricles and extra-axial spaces are normal. Clivus and pituitary gland are normal. Visualized posterior fossa and brainstem are also normal. Postcontrast images are negative for masses or vascular malformations. Dural venous sinuses are normal. Paranasal sinuses: Well aerated with no significant disease. Mastoid air cells: Normal. Calvarium and scalp: Normal. MR/MR head wo/w con [id number] IMPRESSION: 1. No acute infarct or hemorrhage. 2. Moderate progression of scattered T2 and FLAIR signal hyperintensities in t he periventricular and subcortical white matter since 2016. 3. No areas of enhancement.
[2024-07-19] MEDS: gadobenate dimeglumine 20 mL vial IV (09:18)
== END 2024-07-19 08:39 | disposition home or self-care (01) ==
LOC: RAD 08:40
PROVIDERS: PCP Internal Medicine; Visit Provider Nurse Practitioner
DX: R51.9 Headache, unspecified (principal); R42 Dizziness and giddiness; H53.8 Other visual disturbances; W00.9XXA Unspecified fall due to ice and snow, initial encounter; R93.89 Abnormal findings on diagnostic imaging of other specified body structures
CPT/HCPCS: 70553

== ENCOUNTER 2024-07-20 15:51 | Emergency (ER) | payer MEDICAID, SELFPAY ==
[2024-07-20 15:54] VITALS: BP 151/91; PULSE 83; RESP 18; TEMP 36.6; O2SAT 97; BMI 29.7
--- NOTE | 2024-07-20 16:11 | XRR_ITS ---
PROCEDURE INFORMATION: Exam: XR Chest Exam date and time: 07/20/2024 4:49 PM Age: 49 years old Clinical indication: Dyspnea TECHNIQUE: Imaging protocol: Radiologic exam of the chest. Views: 1 view. COMPARISON: CT chest con [id number] 09/28/2023 9:31 AM FINDINGS: Lungs: Unremarkable. No consolidation. Pleural spaces: Unremarkable. No pleural effusion. No pneumothorax. Heart/Mediastinum: Unremarkable. No cardiomegaly. Bones/joints: Unremarkable. XR/XR chest 1V portable [id number] IMPRESSION: No acute findings.
--- NOTE | 2024-07-20 16:13 | ED_ITS ---
Documented by User: Edwin Hardin MD 07/20/24 18:27 HPI - SOB/Dyspnea 2 General: Chief Complaint: Shortness of Breath/Dyspnea Stated Complaint: trouble breathing Time Seen by Provider: 07/20/24 16:10 History of Present Illness: HPI Narrative: Chief complaint shortness of breath. The patient states she has a history of asthma. She has a helper/driver. She states since July of last year she has been fighting off a chronic pneumonia. She states it is in the bottom of her lung and she states that she has had a prior CT scan and she has been on antibiotics several times. She saw her helper/driver recently and they ordered another CT scan which she is supposed to have tomorrow to check for pneumonia or TB among others. She states she has never had TB or TB exposure. She has not been in correction or working at a correction or homeless correction or foreign travel. She does have MS however. She states right now she is off all her asthma medication getting ready for her CT. She denies any history of heart problems or congestive heart failure that she is aware of. No history of cardiac dysrhythmia. She states that she was talking to her daughter about an hour prior to arrival and her daughter said something that upset her greatly and she suddenly felt like she had something sitting on her chest and she could not catch her breath or to get any breath in. She states that after she got the breathing treatments by EMS all her symptoms resolved and she feels fine now. No fever. No recent illness. No runny nose cough or congestion. No hemoptysis. No leg pain or swelling. No recent mobility. No history of PE or DVT. She does not have palpitations associated with this episode. Her asked her if it could have been a panic attack. She states that certainly could have been. She states she feels fine now. She states this morning and prior to that conversation she felt fine. She did not have any radiation of pain to her back arm or jaw. She states it was just substernal pressure and felt like she could not breathe. Related Data Home Medications Medication Instructions Recorded Confirmed lidocaine 4 % topical cream 1 applic topical .every 6 hours 09/13/19 11/16/23 melatonin 5 mg tablet 5 mg PO DAILY PRN Insomnia 09/13/19 11/16/23 multivit with [id number] tab PO 09/13/19 11/16/23 fumarate-folic acid 27 mg-1 mg tablet oxybutynin chloride 5 mg tablet 5 mg PO BID 09/13/19 11/16/23 tizanidine 4 mg tablet (Zanaflex) 4 mg PO Q8H PRN musle spasms 09/13/19 11/16/23 levothyroxine 50 mcg capsule 50 mcg PO DAILY 03/14/20 11/16/23 natalizumab 300 mg/15 mL 300 mg IV Q28D 01/08/21 11/16/23 intravenous solution (Tysabri) ipratropium 20 mcg-albuterol 100 1 puff inhalation Q4H 03/02/22 11/16/23 mcg/actuation mist for inhalation (Combivent Respimat) azelastine 137 mcg (0.1 %) nasal 2 spray intranasal BID 09/16/23 11/16/23 spray budesonide 0.5 mg/2 mL suspension 0.25 mg inhalation BID 09/16/23 11/16/23 for nebulization celecoxib 200 mg capsule (Celebrex) 200 mg PO BID 09/16/23 11/16/23 cetirizine 10 mg capsule (All Day 10 mg PO DAILY 09/16/23 11/16/23 Allergy (cetirizine)) estradiol 1 mg tablet 1 mg PO DAILY 09/16/23 11/16/23 fluticasone propionate 50 2 spray intranasal DAILY 09/16/23 11/16/23 mcg/actuation nasal spray,suspension (Allergy Relief (fluticasone)) ipratropium 0.5 mg-albuterol 3 mg 3 ml inhalation Q4H PRN 09/16/23 11/16/23 (2.5 mg base)/3 mL nebulization soln linaclotide 72 mcg capsule 72 mcg PO DAILY 09/16/23 11/16/23 (Linzess) lutein 20 mg capsule 20 mg PO DAILY 09/16/23 11/16/23 meloxicam 15 mg tablet 15 mg PO DAILY PRN 09/16/23 11/16/23 metronidazole 1 % topical cream 1 applic topical DAILY 09/16/23 11/16/23 pimecrolimus 1 % topical cream 1 applic topical BID 09/16/23 11/16/23 (Elidel) rosuvastatin 20 mg tablet 20 mg PO DAILY 09/16/23 11/16/23 triamcinolone acetonide 0.5 % 1 applic topical DAILY 09/16/23 11/16/23 topical cream Previous Rx's Medication Instructions Recorded pregabalin 150 mg capsule (Lyrica) 150 mg PO TID pain #90 caps 09/13/19 vitamin d See Rx Instructions as directed 01/29/20 .weekly #30 caps diclofenac sodium 1 % topical gel 2 gm topical QID #100 grams 04/10/20 (Voltaren) [place] j collar #1 ea 09/23/21 alendronate 70 mg tablet (Fosamax) 70 mg PO .weekly 3 months #12 tabs 07/31/22 fluticasone propionate 110 1 puff inhalation BID #12 grams 09/16/23 mcg/actuation HFA aerosol inhaler umeclidinium 62.5 mcg-vilanterol 1 inh inhalation DAILY #60 ea 09/16/23 25 mcg/actuation powdr for inhalation (Anoro Ellipta) levofloxacin 500 mg tablet 500 mg PO DAILY #5 tabs 09/30/23 Allergies Allergy/AdvReac Type Severity Reaction Status Date / Time carisoprodol [From Soma] Allergy ALGY-Rash Verified 11/16/23 14:57 prednisolone Allergy ALGY-Anaphy Verified 11/16/23 14:57 laxis prednisone Allergy ALGY-Difficulty Verified 11/16/23 14:57 Breathing zolmitriptan [From Zomig] Allergy RASH Verified 11/16/23 14:57 adhesive AdvReac UNKNOWN Verified 11/16/23 14:57 carbamazepine [From Tegretol] AdvReac VOMITING Verified 11/16/23 14:57 zolpidem [From Ambien] AdvReac SLEEP Verified 11/16/23 14:57 WALKING [facility] ED 2 PFSH: Medical History (Updated 07/20/24 @ 19:17 by Andrew Lucas DO) Rheumatoid factor positive Drug allergy Encounter for long-term opiate analgesic use Low back pain of over 3 months duration Neck pain Opioid contract exists Surgical History Hx of cholecystectomy Hx of neck surgery 03/26/16 w/Dr Schmidt C4-C5 C5-C6 anterior cervical discectomy/ fusion/ fixation Hx of hysterectomy, total Hx of repair of rotator cuff Left-2009 Family History Mother Hypertension Grandfather Cancer liver Social History Smoking and tobacco/nicotine status: never used tobacco/nicotine Second hand smoke exposure: No Alcohol intake: never Substance/Drug Use: never Physical Exam 2 Narrative: EXAM NARRATIVE: Patient is alert anxious. She is mildly tachycardic on auscultation. No murmurs. Lung sounds mildly diminished with mild bilateral expiratory wheezing. No prolonged expiratory phase or retractions or accessory muscle use. No abdominal tenderness guarding or rebound. No calf tenderness or pitting edema. She has a brace on her right leg which she states is chronic and not new. Neck is supple. Pupils equal reactive to light. Oropharynx is moist. She is alert and talkative and talking in full sentences.Speech is clear.No calf tenderness. Course 2 Vital Signs: Vital signs: Vital Signs Temperature 97.8 F 07/20/24 15:54 Pulse Rate 75 07/20/24 19:32 Respiratory Rate 16 07/20/24 18:35 Blood Pressure 155/80 07/20/24 19:32 Pulse Oximetry 98 07/20/24 19:32 Oxygen Delivery Me thod Room Air 07/20/24 15:54 MDM - SOB/Dyspnea Medical Decision Making Patient presents with acute onset of substernal chest tightness and feeling like she could not breathe following a very upsetting conversation with her daughter. She states she feels fine now after receiving DuoNeb albuterol nebulized treatment and nebulized Decadron by EMS. She is currently asymptomatic although she does still have some mild bilateral expiratory wheezing. She is not in any respiratory distress. Panic attack, cardiac dysrhythmia, Takotsubo's, other cardiomyopathy, PE, SD, pericardial effusion, pleural effusion, dissection, extensive differential.Patient had resolution of symptoms with breathing treatments and inhaled steroids making other etiologies other than asthma attack or anxiety attack less likely. No migration or radiation of pain to the back to suggest dissection. I will screen D-dimer however as patient is pending CT tomorrow. She wants to hold off and do her CT tomorrow as scheduled unless her D-dimer is elevated. She wants her doctor to be able to see her images and she gets her care in another system primarily. I advised patient risk and benefit of just doing a CT now without waiting on D-dimer but she wants to do D-dimer and not do the CT if D-dimer is not significant elevated. Will obtain troponin and EKG. With recent onset of symptoms we will get a delta troponin. Patient currently comfortable and we will hold off on further breathing treatments at this time. Troponin is negative. Chest x-ray negative for acute process per radiology. COVID and influenza and RSV are negative. Patient TSH within normal limits. Patient wants to continue outpatient management. Patient remains asymptomatic. Advised patient limits of ED evaluation. Endorsed to Dr. Lucas pending delta troponin with anticipated discharge if delta is negative. Advised patient close follow-up with her doctor follow-up for her CT tomorrow as scheduled. EKG to my interpretation shows sinus rhythm with a rate of [address] segment changes. Lab Data 07/20/24 16:00 07/20/24 16:00 Labs/Radiology: Radiology Impressions Chest X-Ray 07/20/24 16:11 IMPRESSION: No acute findings. Laboratory Results WBC 6.77 10^3/uL (3.29-11.43) 07/20/24 16:00 RBC 5.25 10^6/uL (3.85-5.65) 07/20/24 16:00 Hgb 15.00 g/dL (11.27-16.99) 07/20/24 16:00 Hct 44.5 % (36-47) 07/20/24 16:00 MCV 84.8 fl (85-98) L 07/20/24 16:00 MCH 28.6 pg (27-33) 07/20/24 16:00 MCHC 33.7 g/dL (30-55) 07/20/24 16:00 RDW 12.5 % (12.1-15.1) 07/20/24 16:00 Plt Count 152 10^3/cmm (157-399) L 07/20/24 16:00 MPV 11.9 fL (7.4-10.4) H 07/20/24 16:00 Neut % (Auto) 56.6 % 07/20/24 16:00 Lymph % (Auto) 37.8 % 07/20/24 16:00 [place] % (Auto) 4.9 % 07/20/24 16:00 Eos % (Auto) 0.3 % 07/20/24 16:00 Baso % (Auto) 0.4 % 07/20/24 16:00 Neut # (Auto) 3.83 10^3/uL (1.8-7.7) 07/20/24 16:00 Lymph # (Auto) 2.6 10^3/uL (0.8-4.8) 07/20/24 16:00 [place] # (Auto) 0.3 10^3/uL (0.2-0.9) 07/20/24 16:00 Eos # (Auto) 0.0 10^3/uL (0.0-0.8) 07/20/24 16:00 Baso # (Auto) 0.0 10^3/uL (0.0-0.1) 07/20/24 16:00 Nucleated RBC % (auto) 0 % 07/20/24 16:00 Nucleated RBCs # 0.0 /100WBC 07/20/24 16:00 D-Dimer 0.55 ug/mLFEU (0-0.59) 07/20/24 16:00 Sodium 142 mmol/L (136-145) 07/20/24 16:00 Potassium 3.9 mmol/L (3.5-5.1) 07/20/24 16:00 Chloride 103 mmol/L (98-107) 07/20/24 16:00 Carbon Dioxide 25 mmol/L (22-29) 07/20/24 16:00 Anion Gap 17.9 (5-19) 07/20/24 16:00 BUN 13 mg/dL (6-20) 07/20/24 16:00 Creatinine 0.9 mg/dL (0.5-0.9) 07/20/24 16:00 GFR Calculation 66.0 mL/min (90-130) L 07/20/24 16:00 Glucose 117 mg/dL (65-115) H 07/20/24 16:00 Calculated Osmolality 295 mOsm/kg (285-295) 07/20/24 16:00 Calcium 9.4 mg/dL (8.5-10.5) 07/20/24 16:00 Total Bilirubin 0.4 mg/dL (0.15-1.2) 07/20/24 16:00 AST 18 U/L (0-32) 07/20/24 16:00 ALT 13 U/L (0-33) 07/20/24 16:00 Alkaline Phosphatase 46 U/L (35-105) 07/20/24 16:00 Troponin T Baseline < 6 ng/L (0-10) 07/20/24 16:00 Troponin T 120 Minute 6.00 ng/L (0-10) 07/20/24 18:12 Delta Troponin T 0.36270 ABS# (0-10) 07/20/24 18:12 NT-Pro-B Natriuret Pep < 36 pg/mL (0-125) 07/20/24 16:00 Total Protein 7.5 g/dL (6.6-8.7) 07/20/24 16:00 Albumin 4.8 g/dL (3.5-5.2) 07/20/24 16:00 Globulin 2.7 g/dL (1.3-4.6) 07/20/24 16:00 TSH 1.35 uIU/mL (0.27-4.20) 07/20/24 16:00 Coronavirus (PCR) Negative (Negative) 07/20/24 16:04 Influenza A (PCR) Negative (Negative) 07/20/24 16:04 Influenza Type B (PCR) Negative (Negative) 07/20/24 16:04 RSV (PCR) Negative (Negative) 07/20/24 16:04 Discharge Plan Discharge Patient Disposition: Home Clinical Impression: Shortness of breath Condition: Stable Prescriptions: No Action tizanidine [Zanaflex] 4 mg tablet 4 mg PO Q8H PRN (Reason: musle spasms) oxybutynin chloride 5 mg tablet 5 mg PO BID [id number] fum-folic 27 mg iron- 1 mg tablet PO lidocaine 4 % cream 1 applic TOPICAL .every 6 hours melatonin 5 mg tablet 5 mg PO DAILY PRN (Reason: Insomnia) pregabalin [Lyrica] 150 mg capsule 150 mg PO TID Qty: 90 1RF levothyroxine 50 mcg capsule 50 mcg PO DAILY diclofenac sodium [Voltaren] 1 % gel 2 gm TOPICAL QID Qty: 100 3RF Rx Instructions: apply to single elbow, wrist or hand; for hand includes palm/fingers/back of hand (DME) [place] j collar See Rx Instructions .Route .MEDSUPPLY Qty: 1 0RF Rx Instructions: As directed Tysabri 300 mg/15 mL solution 300 mg IV Q28D Rx Instructions: administer over 60 mins meloxicam 15 mg tablet 15 mg PO DAILY PRN Linzess 72 mcg capsule 72 mcg PO DAILY celecoxib [Celebrex] 200 mg capsule 200 mg PO BID lutein 20 mg capsule 20 mg PO DAILY Rx Instructions: give with meal/snack estradiol 1 mg tablet 1 mg PO DAILY Rx Instructions: off 1 week; repeat cycle rosuvastatin 20 mg tablet 20 mg PO DAILY budesonide 0.5 mg/2 mL suspension for nebulization 0.25 mg inhalation BID ipratropium-albuterol 0.5 mg-3 mg(2.5 mg base)/3 mL solution for nebulization 3 ml inhalation Q4H PRN All Day Allergy (cetirizine) 10 mg capsule 10 mg PO DAILY azelastine 137 mcg (0.1 %) aerosol,spray 2 spray intranasal BID Rx Instructions: administer into each nostril fluticasone propionate [Allergy Relief (fluticasone)] 50 mcg/actuation spray,suspension 2 spray intranasal DAILY Rx Instructions: administer into each nostril metronidazole 1 % cream 1 applic topical DAILY triamcinolone acetonide 0.5 % cream 1 applic topical DAILY pimecrolimus [Elidel] 1 % cream 1 applic topical BID Anoro Ellipta 62.5-25 mcg/actuation blister with device 1 inh inhalation DAILY Qty: 60 6RF fluticasone propionate 110 mcg/actuation HFA aerosol inhaler 1 puff inhalation BID Qty: 12 6RF Combivent Respimat 20-100 mcg/actuation mist 1 puff inhalation Q4H vitamin d 50,000 units capsule See Rx Instructions as directed .weekly Qty: 30 1RF Rx Instructions: as directed .weekly; alendronate [Fosamax] 70 mg tablet 70 mg PO .weekly 90 Days Qty: 12 0RF Rx Instructions: Take one tablet weekly. levofloxacin 500 mg tablet 500 mg PO DAILY Qty: 5 0RF Discharge Orders: Discharge ED (Routine); Ordered 07/20/24 Ordered By: Andrew Lucas Referrals: Mariel Covington [Primary Care Provider] - 1 week Patient Instructions: Shortness of Breath (ED) Activity Restrictions/Additional Instructions: Please follow-up with your family practice physician for more evaluation and testing. Essentially all of your evaluation in the ER today was negative. Thank you for choosing [facility] for your healthcare needs today. Please realize that you were seen in the emergency department and that we are providing you with an emergency medical screening exam and this may not be a complete and all exclusive of all testing and/or medical workup we may need to determine your element or severity of your illness. It is very important that you follow-up as instructed with your primary care provider or specialist for the additional evaluation and to discuss your medical treatment plan. You may return to the emergency department should you have concerns or if your condition changes or worsens in any way. Coding Level of Care Code ED Archival Records Clerk for Chg Fwd Documented by User: Andrew Lucas DO 07/20/24 23:51 HPI - SOB/Dyspnea 2 General: Chief Complaint: Shortness of Breath/Dyspnea Stated Complaint: trouble breathing Time Seen by Provider: 07/20/24 16:10 Related Data Home Medications Medication Instructions Recorded Confirmed lidocaine 4 % topical cream 1 applic topical .every 6 hours 09/13/19 11/16/23 melatonin 5 mg tablet 5 mg PO DAILY PRN Insomnia 09/13/19 11/16/23 multivit with [id number] tab PO 09/13/19 11/16/23 fumarate-folic acid 27 mg-1 mg tablet oxybutynin chloride 5 mg tablet 5 mg PO BID 09/13/19 11/16/23 tizanidine 4 mg tablet (Zanaflex) 4 mg PO Q8H PRN musle spasms 09/13/19 11/16/23 levothyroxine 50 mcg capsule 50 mcg PO DAILY 03/14/20 11/16/23 natalizumab 300 mg/15 mL 300 mg IV Q28D 01/08/21 11/16/23 intravenous solution (Tysabri) ipratropium 20 mcg-albuterol 100 1 puff inhalation Q4H 03/02/22 11/16/23 mcg/actuation mist for inhalation (Combivent Respimat) azelastine 137 mcg (0.1 %) nasal 2 spray intranasal BID 09/16/23 11/16/23 spray budesonide 0.5 mg/2 mL suspension 0.25 mg inhalation BID 09/16/23 11/16/23 for nebulization celecoxib 200 mg capsule (Celebrex) 200 mg PO BID 09/16/23 11/16/23 cetirizine 10 mg capsule (All Day 10 mg PO DAILY 09/16/23 11/16/23 Allergy (cetirizine)) estradiol 1 mg tablet 1 mg PO DAILY 09/16/23 11/16/23 fluticasone propionate 50 2 spray intranasal DAILY 09/16/23 11/16/23 mcg/actuation nasal spray,suspension (Allergy Relief (fluticasone)) ipratropium 0.5 mg-albuterol 3 mg 3 ml inhalation Q4H PRN 09/16/23 11/16/23 (2.5 mg base)/3 mL nebulization soln linaclotide 72 mcg capsule 72 mcg PO DAILY 09/16/23 11/16/23 (Linzess) lutein 20 mg capsule 20 mg PO DAILY 09/16/23 11/16/23 meloxicam 15 mg tablet 15 mg PO DAILY PRN 09/16/23 11/16/23 metronidazole 1 % topical cream 1 applic topical DAILY 09/16/23 11/16/23 pimecrolimus 1 % topical cream 1 applic topical BID 09/16/23 11/16/23 (Elidel) rosuvastatin 20 mg tablet 20 mg PO DAILY 09/16/23 11/16/23 triamcinolone acetonide 0.5 % 1 applic topical DAILY 09/16/23 11/16/23 topical cream Previous Rx's Medication Instructions Recorded pregabalin 150 mg capsule (Lyrica) 150 mg PO TID pain #90 caps 09/13/19 vitamin d See Rx Instructions as directed 01/29/20 .weekly #30 caps diclofenac sodium 1 % topical gel 2 gm topical QID #100 grams 04/10/20 (Voltaren) [place] j collar #1 ea 09/23/21 alendronate 70 mg tablet (Fosamax) 70 mg PO .weekly 3 months #12 tabs 07/31/22 fluticasone propionate 110 1 puff inhalation BID #12 grams 09/16/23 mcg/actuation HFA aerosol inhaler umeclidinium 62.5 mcg-vilanterol 1 inh inhalation DAILY #60 ea 09/16/23 25 mcg/actuation powdr for inhalation (Anoro Ellipta) levofloxacin 500 mg tablet 500 mg PO DAILY #5 tabs 09/30/23 Allergies Allergy/AdvReac Type Severity Reaction Status Date / Time carisoprodol [From Soma] Allergy ALGY-Rash Verified 11/16/23 14:57 prednisolone Allergy ALGY-Anaphy Verified 11/16/23 14:57 laxis prednisone Allergy ALGY-Difficulty Verified 11/16/23 14:57 Breathing zolmitriptan [From Zomig] Allergy RASH Verified 11/16/23 14:57 adhesive AdvReac UNKNOWN Verified 11/16/23 14:57 carbamazepine [From Tegretol] AdvReac VOMITING Verified 11/16/23 14:57 zolpidem [From Ambien] AdvReac SLEEP Verified 11/16/23 14:57 WALKING [facility] ED 2 PFSH: Medical History (Updated 07/20/24 @ 19:17 by Andrew Lucas DO) Rheumatoid factor positive Drug allergy Encounter for long-term opiate analgesic use Low back pain of over 3 months duration Neck pain Opioid contract exists Surgical History Hx of cholecystectomy Hx of neck surgery 03/26/16 w/Dr Schmidt C4-C5 C5-C6 anterior cervical discectomy/ fusion/ fixation Hx of hysterectomy, total Hx of repair of rotator cuff Left-2009 Family History Mother Hypertension Grandfather Cancer liver Social History Smoking and tobacco/nicotine status: never used tobacco/nicotine Second hand smoke exposure: No Alcohol intake: never Substance/Drug Use: never Course 2 Vital Signs: Vital signs: Vital Signs Temperature 97.8 F 07/20/24 15:54 Pulse Rate 75 07/20/24 19:32 Respiratory Rate 16 07/20/24 18:35 Blood Pressure 155/80 07/20/24 19:32 Pulse Oximetry 98 07/20/24 19:32 Oxygen Delivery Me thod Room Air 07/20/24 15:54 MDM - SOB/Dyspnea Medical Decision Making Patient presents with acute onset of substernal chest tightness and feeling like she could not breathe following a very upsetting conversation with her daughter. She states she feels fine now after receiving DuoNeb albuterol nebulized treatment and nebulized Decadron by EMS. She is currently asymptomatic although she does still have some mild bilateral expiratory wheezing. She is not in any respiratory distress. Panic attack, cardiac dysrhythmia, Takotsubo's, other cardiomyopathy, PE, SD, pericardial effusion, pleural effusion, dissection, extensive differential.Patient had resolution of symptoms with breathing treatments and inhaled steroids making other etiologies other than asthma attack or anxiety attack less likely. No migration or radiation of pain to the back to suggest dissection. I will screen D-dimer however as patient is pending CT tomorrow. She wants to hold off and do her CT tomorrow as scheduled unless her D-dimer is elevated. She wants her doctor to be able to see her images and she gets her care in another system primarily. I advised patient risk and benefit of just doing a CT now without waiting on D-dimer but she wants to do D-dimer and not do the CT if D-dimer is not significant elevated. Will obtain troponin and EKG. With recent onset of symptoms we will get a delta troponin. Patient currently comfortable and we will hold off on further breathing treatments at this time. Troponin is negative. Chest x-ray negative for acute process per radiology. COVID and influenza and RSV are negative. Patient TSH within normal limits. Patient wants to continue outpatient management. Patient remains asymptomatic. Advised patient limits of ED evaluation. Endorsed to Dr. Lucas pending delta troponin with anticipated discharge if delta is negative. Advised patient close follow-up with her doctor follow-up for her CT tomorrow as scheduled. EKG to my interpretation shows sinus rhythm with a rate of [address] segment changes. Care transferred to myself at shift change, lab work was reviewed with patient. Patient be discharged home. Lab Data 07/20/24 16:00 07/20/24 16:00 Labs/Radiology: Radiology Impressions Chest X-Ray 07/20/24 16:11 IMPRESSION: No acute findings. Laboratory Results WBC 6.77 10^3/uL (3.29-11.43) 07/20/24 16:00 RBC 5.25 10^6/uL (3.85-5.65) 07/20/24 16:00 Hgb 15.00 g/dL (11.27-16.99) 07/20/24 16:00 Hct 44.5 % (36-47) 07/20/24 16:00 MCV 84.8 fl (85-98) L 07/20/24 16:00 MCH 28.6 pg (27-33) 07/20/24 16: MCHC 33.7 g/dL (30-55) 07/20/24 16:00 RDW 12.5 % (12.1-15.1) 07/20/24 16:00 Plt Count 152 10^3/cmm (157-399) L 07/20/24 16:00 MPV 11.9 fL (7.4-10.4) H 07/20/24 16:00 Neut % (Auto) 56.6 % 07/20/24 16:00 Lymph % (Auto) 37.8 % 07/20/24 16:00 [place] % (Auto) 4.9 % 07/20/24 16:00 Eos % (Auto) 0.3 % 07/20/24 16:00 Baso % (Auto) 0.4 % 07/20/24 16:00 Neut # (Auto) 3.83 10^3/uL (1.8-7.7) 07/20/24 16:00 Lymph # (Auto) 2.6 10^3/uL (0.8-4.8) 07/20/24 16:00 [place] # (Auto) 0.3 10^3/uL (0.2-0.9) 07/20/24 16:00 Eos # (Auto) 0.0 10^3/uL (0.0-0.8) 07/20/24 16:00 Baso # (Auto) 0.0 10^3/uL (0.0-0.1) 07/20/24 16:00 Nucleated RBC % (auto) 0 % 07/20/24 16:00 Nucleated RBCs # 0.0 /100WBC 07/20/24 16:00 D-Dimer 0.55 ug/mLFEU (0-0.59) 07/20/24 16:00 Sodium 142 mmol/L (136-145) 07/20/24 16:00 Potassium 3.9 mmol/L (3.5-5.1) 07/20/24 16:00 Chloride 103 mmol/L (98-107) 07/20/24 16:00 Carbon Dioxide 25 mmol/L (22-29) 07/20/24 16:00 Anion Gap 17.9 (5-19) 07/20/24 16:00 BUN 13 mg/dL (6-20) 07/20/24 16:00 Creatinine 0.9 mg/dL (0.5-0.9) 07/20/24 16:00 GFR Calculation 66.0 mL/min (90-130) L 07/20/24 16:00 Glucose 117 mg/dL (65-115) H 07/20/24 16:00 Calculated Osmolality 295 mOsm/kg (285-295) 07/20/24 16:00 Calcium 9.4 mg/dL (8.5-10.5) 07/20/24 16:00 Total Bilirubin 0.4 mg/dL (0.15-1.2) 07/20/24 16:00 AST 18 U/L (0-32) 07/20/24 16:00 ALT 13 U/L (0-33) 07/20/24 16:00 Alkaline Phosphatase 46 U/L (35-105) 07/20/24 16:00 Troponin T Baseline < 6 ng/L (0-10) 07/20/24 16:00 Troponin T 120 Minute 6.00 ng/L (0-10) 07/20/24 18:12 Delta Troponin T 0.98937 ABS# (0-10) 07/20/24 18:12 NT-Pro-B Natriuret Pep < 36 pg/mL (0-125) 07/20/24 16:00 Total Protein 7.5 g/dL (6.6-8.7) 07/20/24 16:00 Albumin 4.8 g/dL (3.5-5.2) 07/20/24 16:00 Globulin 2.7 g/dL (1.3-4.6) 07/20/24 16:00 TSH 1.35 uIU/mL (0.27-4.20) 07/20/24 16:00 Coronavirus (PCR) Negative (Negative) 07/20/24 16:04 Influenza A (PCR) Negative (Negative) 07/20/24 16:04 Influenza Type B (PCR) Negative (Negative) 07/20/24 16:04 RSV (PCR) Negative (Negative) 07/20/24 16:04 All radiology interpretation(s) finalized by discharge Discharge Plan Discharge Patient Disposition: Home Clinical Impression: Shortness of breath Condition: Stable Prescriptions: No Action tizanidine [Zanaflex] 4 mg tablet 4 mg PO Q8H PRN (Reason: musle spasms) oxybutynin chloride 5 mg tablet 5 mg PO BID [id number] fum-folic 27 mg iron- 1 mg tablet PO lidocaine 4 % cream 1 applic TOPICAL .every 6 hours melatonin 5 mg tablet 5 mg PO DAILY PRN (Reason: Insomnia) pregabalin [Lyrica] 150 mg capsule 150 mg PO TID Qty: 90 1RF levothyroxine 50 mcg capsule 50 mcg PO DAILY diclofenac sodium [Voltaren] 1 % gel 2 gm TOPICAL QID Qty: 100 3RF Rx Instructions: apply to single elbow, wrist or hand; for hand includes palm/fingers/back of hand (DME) [place] collar See Rx Instructions .Route .MEDSUPPLY Qty: 1 0RF Rx Instructions: As directed Tysabri 300 mg/15 mL solution 300 mg IV Q28D Rx Instructions: administer over 60 mins meloxicam 15 mg tablet 15 mg PO DAILY PRN Linzess 72 mcg capsule 72 mcg PO DAILY celecoxib [Celebrex] 200 mg capsule 200 mg PO BID lutein 20 mg capsule 20 mg PO DAILY Rx Instructions: give with meal/snack estradiol 1 mg tablet 1 mg PO DAILY Rx Instructions: off 1 week; repeat cycle rosuvastatin 20 mg tablet 20 mg PO DAILY budesonide 0.5 mg/2 mL suspension for nebulization 0.25 mg inhalation BID ipratropium-albuterol 0.5 mg-3 mg(2.5 mg base)/3 mL solution for nebulization 3 ml inhalation Q4H PRN All Day Allergy (cetirizine) 10 mg capsule 10 mg PO DAILY azelastine 137 mcg (0.1 %) aerosol,spray 2 spray intranasal BID Rx Instructions: administer into each nostril fluticasone propionate [Allergy Relief (fluticasone)] 50 mcg/actuation spray,suspension 2 spray intranasal DAILY Rx Instructions: administer into each nostril metronidazole 1 % cream 1 applic topical DAILY triamcinolone acetonide 0.5 % cream 1 applic topical DAILY pimecrolimus [Elidel] 1 % cream 1 applic topical BID Anoro Ellipta 62.5-25 mcg/actuation blister with device 1 inh inhalation DAILY Qty: 60 6RF fluticasone propionate 110 mcg/actuation HFA aerosol inhaler 1 puff inhalation BID Qty: 12 6RF Combivent Respimat 20-100 mcg/actuation mist 1 puff inhalation Q4H vitamin d 50,000 units capsule See Rx Instructions as directed .weekly Qty: 30 1RF Rx Instructions: as directed .weekly; alendronate [Fosamax] 70 mg tablet 70 mg PO .weekly 90 Days Qty: 12 0RF Rx Instructions: Take one tablet weekly. levofloxacin 500 mg tablet 500 mg PO DAILY Qty: 5 0RF Discharge Orders: Discharge ED (Routine); Ordered 07/20/24 Ordered By: Andrew Lucas Referrals: Mariel Covington [Primary Care Provider] - 1 week Patient Instructions: Shortness of Breath (ED) Activity Restrictions/Additional Instructions: Please follow-up with your family practice physician for more evaluation and testing. Essentially all of your evaluation in the ER today was negative. Thank you for choosing [facility] for your healthcare needs today. Please realize that you were seen in the emergency department and that we are providing you with an emergency medical screening exam and this may not be a complete and all exclusive of all testing and/or medical workup we may need to determine your element or severity of your illness. It is very important that you follow-up as instructed with your primary care provider or specialist for the additional evaluation and to discuss your medical treatment plan. You may return to the emergency department should you have concerns or if your condition changes or worsens in any way. Coding Level of Care Code ED Archival Records Clerk for Sierra Salomon
--- NOTE | 2024-07-20 16:32 | ECG_ITS ---
[facility] Date: 2024-07-20 Pat Name: Shirley Meza Department: Room: Gender: Female Gaggerman: : 1975 Requested By: Edwin Hadrin Order Number: [id number] Reading MD: ANDREAS BALL Measurements Intervals Ruby Rate: 75 P: 58 VA: 128 QRS: 28 QRSD: 81 T: 33 QT: 387 QTc: 433 Interpretive Statements SINUS RHYTHM No previous ECG available for comparison Electronically Signed On 07-21-2024 23:23:23 [employer] by ANDREAS BALL [email or web address]
[2024-07-20 16:33] LABS: Basophils % 0.4 %; Eosinophils % 0.3 %; Hematocrit 44.5 % (36-47); Lymphocytes # 2.6 10^3/uL (0.8-4.8); Lymphocytes % 37.8 %; Mean Corpuscular HGB Conc 33.7 g/dL (30-55); Mean Corpuscular Hemoglobin 28.6 pg (27-33); Mean Corpuscular Volume 84.8 fl (85-98); Mean Platelet Volume 11.9 fL (7.4-10.4); Monocytes # 0.3 10^3/uL (0.2-0.9); Monocytes % 4.9 %; Neutrophils # 3.83 10^3/uL (1.8-7.7); Neutrophils % 56.6 %; Nucleated Red Blood Cells % 0 %; Platelet Count 152 10^3/cmm (157-399); Red Blood Count 5.25 10^6/uL (3.85-5.65); Red Cell Distribution Width 12.5 % (12.1-15.1); White Blood Count 6.77 10^3/uL (3.29-11.43)
[2024-07-20 16:53] LABS: D Dimer 0.55 ug/mLFEU (0-0.59)
[2024-07-20 17:16] LABS: Covid PCR NEGATIVE (Negative); Influenza A NEGATIVE (Negative); Influenza B NEGATIVE (Negative); Respiratory Syncytial Virus Ce NEGATIVE (Negative)
[2024-07-20 17:18] LABS: Troponin(5th) Baseline < 6 ng/L (0-10)
[2024-07-20 17:28] LABS: Alanine Aminotransferase 13 U/L (0-33); Albumin Level 4.8 g/dL (3.5-5.2); Alkaline Phosphatase 46 U/L (35-105); Anion Gap 17.9 (5-19); Aspartate Amino Transferase 18 U/L (0-32); Blood Urea Nitrogen 13 mg/dL (6-20); Calcium 9.4 mg/dL (8.5-10.5); Carbon Dioxide 25 mmol/L (22-29); Chloride 103 mmol/L (98-107); Creatinine Clr Calc Pharmacy 64.0671; Globulin 2.7 g/dL (1.3-4.6); Glucose 117 mg/dL (65-115); NT Pro B Type Natriuretic Pept < 36 pg/mL (0-125); Osmolality Calculated 295 mOsm/kg (285-295); Potassium 3.9 mmol/L (3.5-5.1); Sodium 142 mmol/L (136-145); Thyroid Stimulating Hormone 1.35 uIU/mL (0.27-4.20); Total Bilirubin 0.4 mg/dL (0.15-1.2); Total Protein 7.5 g/dL (6.6-8.7)
--- NOTE | 2024-07-20 18:26 | ECG_ITS ---
[facility] Test Date: 2024-07-20 Pat Name: Shirley Meza Department: Room: Gender: Female Athlete Manager: : 1975 Requested By: Edwin Hardin Order Number: [id number] Reading MD: ANDREAS BALL Measurements Intervals [place] Rate: 71 P: 51 FL: 126 QRS: 16 QRSD: 78 T: 37 QT: 389 QTc: 423 Interpretive Statements SINUS RHYTHM Compared to ECG 07/20/2024 16:32:40 No significant changes Electronically Signed On 07-21-2024 23:32:55 SALES FINANCIAL ANALYST by ANDREAS BALL [id number]
[2024-07-20 18:35] VITALS: BP 122/94; PULSE 76; RESP 16; O2SAT 97
[2024-07-20 18:40] LABS: Troponin 5 2HR Delta 0.00001 ABS# (0-10)
[2024-07-20 19:32] VITALS: BP 155/80; PULSE 75; O2SAT 98
== END 2024-07-20 19:33 | disposition home or self-care (01) ==
PROVIDERS: Emergency Provider Emergency Medicine; PCP Internal Medicine
DX: R06.02 Shortness of breath (principal); Z11.52 Encounter for screening for COVID-19
CPT/HCPCS: 36415; 71045; 80053; 83880; 84443; 84484; 85025; 85378; 87637; 93005; 99285

== ENCOUNTER 2024-08-09 13:03 | Outpatient (CLI) | payer MEDICAID, SELFPAY ==
--- NOTE | 2024-08-09 13:05 | XR_ITS ---
WS: [id number] SCREENING DEXA SCAN [employer] [facility] COMPARISON: 2020 FINDINGS: The L1-L4 bone mineral density measures 1.159 g/cm2. This corresponds to a T score score of -0.2 and Z score of 0.2. Left femoral neck bone mineral density measures 0.818 g/cm2. This corresponds to a T score of -1.5 and Z score of -1.1. Right femoral neck bone mineral density measures 0.865 g/cm2. This corresponds to a T score -1.1of and Z score of -0.7. Mean femoral neck bone mineral density measures 0.841 g/cm2. This corresponds to a T score of -1.3 and Z score of -0.9. XR/XR DEXA axial skeleton* 27113 IMPRESSION: Normal bone mineralization lumbar spine. Osteopenia femoral necks. Patient's FRAX calculated 10 year probability for major osteoporotic fracture i s 7.2% and osteoporotic hip fracture is 0.9%.
== END 2024-08-09 13:04 | disposition home or self-care (01) ==
PROVIDERS: PCP Internal Medicine; Visit Provider Nurse Practitioner
DX: M85.89 Other specified disorders of bone density and structure, multiple sites (principal)
CPT/HCPCS: 77080

== ENCOUNTER → 2025-05-21 10:44 | Outpatient (BNVA) | payer MEDICAID, SELFPAY | PROVIDERS: Visit Provider Nurse Practitioner | DX: M25.532 Pain in left wrist (principal) | CPT/HCPCS: 73110 ==

== ENCOUNTER → 2025-06-18 07:51 | Outpatient (BNVA) | payer MEDICAID, SELFPAY | PROVIDERS: Visit Provider Nurse Practitioner | DX: M17.12 Unilateral primary osteoarthritis, left knee (principal); G89.29 Other chronic pain; W19.XXXA Unspecified fall, initial encounter | CPT/HCPCS: 20610; 73560; 73565; 99214; J1100; J2795; J3301; J9999 ==